=== PATIENT | male | born 1995 | race Caucasian/White ===

== ENCOUNTER 2016-06-16 09:55 | Emergency (ER) | payer OTHER ==
[2016-06-16 10:45] VITALS: BP 131/73; PULSE 87; RESP 16; TEMP 99.5; O2SAT 96
--- NOTE | 2016-06-16 11:15 | UCPHY ---
H & P Time Seen by Provider: 06/16/16 10:56 Patient Type: New HPI/ROS: This patient reports a 4 day history of mild discomfort to his right eye with increasing redness. Says it feels like there might be an eyelash in it. He reports the discomfort is 1/10. He notes no exacerbating factors for his symptoms. ROS: No vision changes. HEENT: No recent URI symptoms. No skin lesions on his face. No left eye symptoms and 5 point ROS is otherwise negative Physical Exam: Physical Exam Vital signs are normal. General: No acute distress HEENT: Atraumatic. Nose: Clear no lip lesions. Eyes: Pupils equal and react to light. Extraocular motions are intact. There is moderate conjunctival injection to the right eye with mild upper lid swelling. Lashes appear normal. On slit-lamp exam after proparacaine anesthesia appreciate no corneal lesions scratches or foreign bodies with fluorescein dye stain. I everted the eyelids and appreciate no foreign bodies. Left eye exam is normal Lungs: No respiratory distress. Cardiac: Brisk capillary refill is intact throughout. Skin: No rash or pallor. Neuro: Alert Constitutional: Initial Vital Signs Temperature (C) 37.5 C 06/16/16 10:42 Heart Rate 87 06/16/16 10:42 Respiratory Rate 16 06/16/16 10:42 Blood Pressure 131/73 H 06/16/16 10:42 O2 Sat (%) 96 06/16/16 10:42 O2 Delivery Mode Room Air Allergies/Adverse Reactions: No Known Allergies Allergy (Unverified 06/16/16 10:45) Home Medications: Medication Instructions Recorded DULoxetine 06/16/16 Lamotrigine 06/16/16 Ofloxacin 0.3% [Ocuflox 0.3% (RX)] 2 drops EACHEYE Q1 #1 btl 06/16/16 Truvada 100 mg-150 mg Tablet 06/16/16 Departure - Departure Disposition: Home, Routine, Self-Care Clinical Impression: Conjunctivitis Condition: Good Instructions: Conjunctivitis (ED) Additional Instructions: Diagnosis: Conjunctivitis Plan: Wash hands frequently Ocuflox antibiotic drops 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 Referrals: NONE *PRIMARY CARE P,. [Primary Care Provider] - As per Instructions Bonilla Palacio MD [Medical Doctor] - As per Instructions Prescriptions: Ofloxacin 0.3% [Ocuflox 0.3% (RX)] 2 drops EACHEYE Q1 #1 btl - PQRS PQRS Measurement: NA
== END 2016-06-16 11:26 | disposition home or self-care (01) ==
LOC: CED 09:55
DX: H10.9 Unspecified conjunctivitis (principal)
CPT/HCPCS: 99203-PO; G0463-PO